=== PATIENT | female | born 1985 | race Caucasian/White ===

== ENCOUNTER 2020-01-22 13:38 | Emergency (ER) | payer SELFPAY ==
[2020-01-22 13:39] VITALS: BP 130/76; PULSE 70; RESP 18; TEMP 36.2; O2SAT 100; BMI 24.4
--- NOTE | 2020-01-22 14:24 | CT_ITS ---
STUDY: CT ABDOMEN AND PELVIS WITH CONTRAST REASON FOR EXAM: Female, 34 years old. LOW ABD PAIN SINCE LAST NIGHT, PREV ABD SURG D/T TRAUMA RADIATION DOSAGE (If Supplied By Facility): CTDIvol = ( 6.6 ) mGy, DLP = ( 336.71 ) mGycm TECHNIQUE: Transaxial images were obtained from the dome of the diaphragm to the symphysis pubis without oral contrast. IV 100ML ISOVUE 300 was administered. Sagittal and coronal images were reconstructed. Individualized dose optimization techniques were used for this CT. COMPARISON: None. FINDINGS: The visualized lung bases are unremarkable. The visualized portions of the heart are within normal limits. There is a 9 mm low-attenuation focus of the lateral right hepatic lobe indeterminate for solid versus cystic structure. Normal gallbladder and extrahepatic biliary system. Normal spleen. Normal pancreas. Normal bilateral adrenal glands. Normal right kidney. Normal left kidney. There is a small hiatal hernia. Normal small intestine. Normal colon. The appendix is visualized and appears normal. Normal abdominal aorta. Normal inferior vena cava. Normal retroperitoneum. Normal urinary bladder. There is a small amount of free fluid in the deep right pelvis. There is a tiny fat-containing umbilical hernia. Normal osseous structures. CT/Abdomen/Pelvis WITH Contrast IMPRESSION: 1. 9 mm low-attenuation focus of the lateral right hepatic lobe indeterminate for solid versus cystic structure. Nonemergent ultrasound correlation is recommended. 2. Small hiatal hernia. Tiny fat-containing umbilical hernia. 3. There is a small amount of free fluid in the deep right pelvis. This may be physiologic. Electronically Signed: Papi Barbosa MD at 16:40 EDT , Service support ,
--- NOTE | 2020-01-22 14:24 | ED.VIS.GEN ---
History of Present Illness Chief Complaint: Abd Pain Informant: Patient Onset: Yesterday Current Severity: Moderate Maximum Severity: Moderate Narrative: Patient present secondary to mid lower abdominal pain. She states pain started last evening. Last night she felt sweaty and lightheaded with the severe pain. She has been able to urinate and had normal bowel movements. She denies fever or chills. She does describe prior abdominal surgery after being kicked in the abdomen by a horse. She states that she was told that they removed everything, cleaned it up, and patched her back together. Past Medical History - Allergies and Home Meds Allergies/Adverse Reactions: Allergies No Known Allergies Allergy (Verified 01/22/20 13:42) Surgical History: - - Ex lap Lives: Spouse/ Significant Other Review of Systems General: Denies: Chills, Fever Eyes: Denies: Visual changes - bilaterally ENT: Denies: Bilateral ear pain Cardiovascular: Denies: Chest pain Respiratory: Denies: Dyspnea, Cough Gastrointestinal: Reports: Abdominal pain. Denies: Vomiting, Diarrhea Genitourinary: Denies: Dysuria Musculoskeletal: Denies: Extremity Pain Skin: Denies: Rash Neurological: Denies: Headache Hematologic: Denies: Easy bruising, Easy bleeding Allergy: Denies: Uticaria Physical Exam Vital Signs/Narrative: Vital Signs Temp Pulse Resp BP Pulse Ox 01/22/20 13:39 97.2 F L 70 18 130/76 H 100 Inital Vital Signs reviewed: Yes General: Well nourished, Well developed Head: Normocephalic ENT: Moist mucous membranes Neck: Supple Cardiovascular: Regular rate, Regular rhythm Respiratory: No distress, CTA bilaterally Abdomen: Soft, Tender - Moderate periumbilical tenderness to palpation., Hypoactive bowel sounds. Negative for: Guarding Extremities: Nontender Skin: Normal color Neurological: Alert, Oriented x3 Psychological: Normal affect Diagnostic/Tx/Re-eval Impressions Abdomen/Pelvis CT 01/22/20 14:24 IMPRESSION: 1. 9 mm low-attenuation focus of the lateral right hepatic lobe indeterminate for solid versus cystic structure. Nonemergent ultrasound correlation is recommended. 2. Small hiatal hernia. Tiny fat-containing umbilical hernia. 3. There is a small amount of free fluid in the deep right pelvis. This may be physiologic. Electronically Signed: Papi Barbosa MD at 16:40 EDT , Service support , 01/22/20 14:24 Abdomen/Pelvis WITH Contrast [CT] Stat Laboratory Results 01/22/20 01/22/20 01/22/20 14:53 14:53 14:53 WBC 9.2 RBC 4.25 Hgb 13.2 Hct 39.4 MCV 92.7 MCH 31.1 MCHC 33.5 RDW Std Deviation 42.6 RDW Coeff of Hardik 12.4 Plt Count 239 MPV 12.0 Immature Gran % (Auto) 0.300 Neut % (Auto) 69.6 Lymph % (Auto) 17.4 L Davis % (Auto) 8.5 Eos % (Auto) 3.4 Baso % (Auto) 0.8 Absolute Neuts (auto) 6.4 Absolute Lymphs (auto) 1.61 Nucleated RBC % 0 Sodium 136 Potassium 3.7 Chloride 105 Carbon Dioxide 28.0 Anion Gap 3 L BUN 9 Creatinine 0.77 Estim Creat Clear Calc 84.36 Est GFR (MDRD) Af Amer 110 Est GFR (MDRD) Non-Af 91 BUN/Creatinine Ratio 11.7 Glucose 87 Calcium 8.9 Total Bilirubin 0.50 Direct Bilirubin 0.15 AST 8 L ALT 17 Alkaline Phosphatase 56 Total Protein 8.0 Albumin 4.2 Globulin 3.8 Lipase 108 Serum , Qual NEGATIVE Urine Color Urine Clarity Urine pH Ur Specific [place] Urine Protein Urine Glucose (UA) Urine Ketones Urine Occult Blood Urine Nitrite Urine Bilirubin Urine Urobilinogen Ur Leukocyte Esterase 01/22/20 16:36 WBC RBC Hgb Hct MCV MCH MCHC RDW Std Deviation RDW Coeff of Hardik Plt Count MPV Immature Gran % (Auto) Neut % (Auto) Lymph % (Auto) Davis % (Auto) Eos % (Auto) Baso % (Auto) Absolute Neuts (auto) Absolute Lymphs (auto) Nucleated RBC % Sodium Potassium Chloride Carbon Dioxide Anion Gap BUN Creatinine Estim Creat Clear Calc Est GFR (MDRD) Af Amer Est GFR (MDRD) Non-Af BUN/Creatinine Ratio Glucose Calcium Total Bilirubin Direct Bilirubin AST ALT Alkaline Phosphatase Total Protein Albumin Globulin Lipase Serum , Qual Urine Color Yellow Urine Clarity Clear Urine pH 6.5 Ur Specific [place] 1.015 Urine Protein Negative Urine Glucose (UA) Normal Urine Ketones Negative Urine Occult Blood Negative Urine Nitrite Negative Urine Bilirubin Negative Urine Urobilinogen Normal Ur Leukocyte Esterase Negative - Medical Decision Making Patient declined anything for pain or nausea while here. Test results are discussed with her and significant other at bedside. At this time she does have some free fluid noted in the pelvis. This may be physiologic or from a ruptured cyst. At this time there are no other acute findings noted. Patient will take Tylenol or ibuprofen at home and follow bland diet. She is given return instructions. ED Disposition - Plan for ED Patient: Disposition: Home or Assisted Living Diagnosis: Abdominal pain Instructions: ED Abdominal Pain Unkn Cause Fem Referrals: Frieda Gaviria MD [STAFF PHYSICIAN] - As Needed
[2020-01-22] MEDS: 0.9% Normal Saline 1,000 ML 150 ML IV (15:00)
[2020-01-22 15:15] LABS: Absolute Lymphocyte Count 1.61 X10^3/uL (0.83-4.51); Absolute Neutrophil Count 6.4 X10^3/uL (2.0-7.7); Basophil# 0.07 X10^3/uL; Basophil% 0.8 % (0-1); Eosinophil# 0.31 X10^3/uL; Eosinophils% 3.4 % (0-5); Hematocrit 39.4 % (37-47); Hemoglobin 13.2 g/dL (12.0-15.0); Lymphocyte # 1.61 X10^3/ul (4.0); Lymphocyte % 17.4 % (19-41); Mean Corp Hgb Conc 33.5 g/dL (32-36); Mean Corpuscular Hgb 31.1 pg (27.0-32.0); Mean Corpuscular Volume 92.7 fL (81-99); Monocyte# 0.79 X10^3/uL; Monocyte% 8.5 % (0-10); NRBC Flagged by Analyzer 0 % (0-5); Neutrophil # 6.43 X10^3/uL (2.7-7.7); Neutrophil % 69.6 % (47-70); Platelet Count 239 K/mm3 (150-450); RBC Distribution Width CV 12.4 % (11.6-14.6); RBC Distribution Width SD 42.6 fl (35.1-43.9); Red Blood Count 4.25 M/mm3 (4.2-5.4); White Blood Count 9.2 K/mm3 (4.4-11.0)
[2020-01-22 15:44] LABS: Internal QC Validated? YES +Cl - CLEAR BKGD; Pregnancy, Serum, hCG Quali. NEGATIVE Negative
[2020-01-22 15:45] LABS: AST(SGOT) 8 U/L (15-37); Alanine Aminotransfer ALT/SGPT 17 U/L (13-56); Albumin, Serum 4.2 g/dL (3.2-5.0); Alkaline Phosphatase 56 U/L (45-117); Anion Gap 3 (5-15); BUN 9 mg/dL (7-18); BUN/Creat Ratio 11.7 RATIO (10-20); Bilirubin, Direct 0.15 mg/dL (0.00-0.30); Calcium,Total 8.9 mg/dL (8.5-10.1); Chloride 105 mmol/L (98-107); Creatinine, Serum 0.77 mg/dL (0.55-1.02); EST Glomerular Filtration Rate 91 mL/min (>60); Est Glom Filt Rate - Afr Amer 110 mL/min (>60); Estimated Creatinine Clearance 84.36 ml/min; Globulin 3.8 g/dL (2.2-4.2); Glucose 87 mg/dL (74-106); Lipase 108 U/L (73-393); Potassium 3.7 mmol/L (3.5-5.1); Sodium Level 136 mmol/L (136-145)
[2020-01-22 16:49] LABS: Mucous, Urine 0 SEEN /hpf (<or=2+); Red Blood Cells-Urine 0 SEEN /hpf (0-5); Squamous Epithelial Cells - UA 0 SEEN /hpf (5-10); White Blood Cells 0 SEEN /hpf (0-5)
[2020-01-22 16:51] LABS: Color, Urine Yellow (Yellow); Glucose, Dipstick Normal (Normal); Ketone-Dipstick Negative (Negative); Leukocyte Esterase-Dipstick Negative /ul (Negative); Nitrite-Dipstick Negative (Negative); Occult Blood-Urine Negative /ul (Negative); Protein-Dipstick Negative (Negative); Specific Gravity, Urine 1.015 (1.002-1.030); Urine Bilirubin Dipstick Negative (Negative); Urine Clarity Clear (Clear); Urine Urobilinogen Normal (Normal); Urine pH 6.5 (5.0 - 8.0)
[2020-01-22 17:30] LABS: Bacteria 1+ /hpf (None Seen)
[2020-01-22 18:02] VITALS: BP 128/77; PULSE 74; RESP 17; O2SAT 100
== END 2020-01-22 18:04 | disposition home or self-care (01) ==
PROVIDERS: Emergency Provider Emergency Medicine
DX: R10.30 Lower abdominal pain, unspecified (principal)
CPT/HCPCS: 74177; 80048; 80076; 81001; 83690; 84703; 85025; 96360; 96361; 99285; J7030; Q9967